=== PATIENT | male | born 1935 | race Caucasian/White ===

== ENCOUNTER → 2018-04-13 | Outpatient (CLI) | payer OTHER ==
--- NOTE | 2018-04-13 12:24 | EXE ---
[facility] [place] [address] STRESS ECHOCARDIOGRAM Name: LETTY IVEY JR Room #: REG [facility]#: [id number] Admission: 04/13/18 Attend Phys: Lemuel Perez Discharge: Date of : 35 Date of Service: 04/13/18 1223 Report #: [id number] THIS REPORT FOR: //name// APPROVED REPORT Study performed: 04/13/2018 10:08:00 Exam: Stress Echocardiogram Indication: CAD Patient Location: Out-Patient Stress Nurse: Yolanda Anaya RN Status: routine Ht: 5 ft 8 in HR: 48 bpm BP: 118/74 mmHg Rhythm: NSR Medical History Medications: Statin Allergies: No known drug allergies Cardiac Risk Factors: Hyperlipidemia Previous Cardiac Procedures: PCI Procedure The patient underwent an Exercise Stress Test using the Romie Protocol. Blood pressure, heart rate, and EKG were monitored. An Echocardiogram was performed by marine services technician in four stages in quad fashion. At peak stress, four selected images were obtained and placed side by side with resting images for comparison. Stress Test Details Stress Test: Exercise stress testing was performed using a Romie protocol. HR Resting HR: 48 bpm Max Heart Rate (APMHR): 138 bpm Max HR Achieved: 148 bpm Target HR (85% APMHR): 117 bpm % of APMHR: 107 Recovery HR: 81 bpm HR response to stress: Normal HR response to stress BP Resting BP: 118/74 mmHg Max BP: 182/60 mmHg Recovery BP: 160/60 mmHg BP response to stress: Normal blood pressure response to [facility] [address] [place] [address] STRESS ECHOCARDIOGRAM Name: LETTY IVEY JR Room #: REG [facility] [id number] Admission: 04/13/18 Attend Phys: Lemuel Perez Discharge: Date of : 35 Date of Service: 04/13/18 1223 Report #: [id number] stress. ECG Resting ECG: Sinus Rhythm Stress ECG: Sinus Tachycardia ST Change: Upsloping ST depression Recovery ECG: Sinus Bradycardia Recovery ST Change: Horizontal ST depression Recovery ST Deviation: 1 mm Clinical Reason for Termination: dry mouth, moderate dyspnea, fatigue, protocol complete Exercise duration: 7 min sec Highest Stage Achieved: Stage 3: 3.4 mph at 14% grade. Exercise capacity: 8.8 METs Stress ECG Conclusion 1. Subjectively negative for ischemia 2. Electrocardiographically J-point depression with upsloping ST segment during exercise with 1 mm horizontal depression in the inferior leads during recovery which did not fulfill criteria for ischemia. 3. Average functional capacity Pre-Stress Echo The resting Echocardiogram showed normal left ventricular contractility with an estimated Ejection Fraction of about 60-65%. Mild to moderate mitral regurgitation, sclerotic aortic valve with no stenosis, mild TR with a PAP of 25mmHg plus the RAP. Post-Stress Echo The stress Echocardiogram showed normal left ventricular contractility with an estimated Ejection Fraction of about >70%. Conclusion Clinical Response: Non-ischemic Exercise Capacity: Average Stress ECG Response: suggestive but not diagnostic Stress Echo Images: Non-ischemic 1. Low risk study Other Information Study Quality: Adequate/lots of lung artifact. [facility] [address] [place] [address] STRESS ECHOCARDIOGRAM Name: LETTY IVEY Room #: REG CL [facility]#: [id number] Admission: 04/13/18 Attend Phys: Lemuel Perez Discharge: Date of : 35 Date of Service: 04/13/183 Report #: [id number] <Conclusion> 1. Low risk study <ELECTRONICALLY SIGNED> By: Lemuel Garcia MD 04/13/183 22 22 Lemuel Garcia MD /INF
== END ==
LOC: CV 08:04
DX: I65.23 Occlusion and stenosis of bilateral carotid arteries (principal); I25.10 Atherosclerotic heart disease of native coronary artery without angina pectoris; R01.1 Cardiac murmur, unspecified; R09.89 Other specified symptoms and signs involving the circulatory and respiratory systems

== ENCOUNTER → 2018-09-26 | Outpatient (CLI) | payer OTHER ==
--- NOTE | 2018-09-27 07:49 | EKG ---
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 GOLDSMITH : 1935 Requested By: Lex Francis Order Number: [id number] MD: Erik Miguel Measurements Intervals [place] Rate: 56 P: 22 NC: 150 QRS: 2 QRSD: 87 T: 29 QT: 413 QTc: 399 Interpretive Statements Sinus bradycardia Otherwise normal tracing No previous ECG available for comparison Electronically Signed On 09-27-2018 7:48:51 CDT by Erik Miguel [email or web address] ��������������������������������������������� <ELECTRONICALLY SIGNED> ���������������������������������������� By: Erik Miguel MD, [facility] ��������������������������������������������� 09/27/18 0748 1736 1736 Erik Miguel MD, FACC /EPI
== END ==
LOC: CV 17:20
DX: R00.1 Bradycardia, unspecified (principal); R42 Dizziness and giddiness; W19.XXXA Unspecified fall, initial encounter

== ENCOUNTER → 2019-03-29 | Outpatient (CLI) | payer OTHER | LOC: SJCVC 10:00 | DX: R00.1 Bradycardia, unspecified (principal); I25.10 Atherosclerotic heart disease of native coronary artery without angina pectoris; E78.5 Hyperlipidemia, unspecified; K21.9 Gastro-esophageal reflux disease without esophagitis; Z79.82 Long term (current) use of aspirin; Z79.899 Other long term (current) drug therapy; Z87.891 Personal history of nicotine dependence ==

== ENCOUNTER → 2019-04-05 | Outpatient (CLI) | payer OTHER | LOC: SJCVCIMAG 07:28 | DX: I65.23 Occlusion and stenosis of bilateral carotid arteries (principal); R09.89 Other specified symptoms and signs involving the circulatory and respiratory systems; I70.8 Atherosclerosis of other arteries; Z87.891 Personal history of nicotine dependence ==

== ENCOUNTER → 2019-04-20 | Outpatient (CLI) | payer OTHER ==
[2019-04-20 09:44] LABS: CALCIUM 9.6 mg/dL (8.5-10.1); CREATININE 1.9 mg/dL (0.7-1.3); POTASSIUM 4.5 mmol/L (3.5-5.1)
== END ==
LOC: CAT 07:26
PROVIDERS: Nurse Practitioner
DX: N28.1 Cyst of kidney, acquired (principal); J98.4 Other disorders of lung; K76.89 Other specified diseases of liver; I25.10 Atherosclerotic heart disease of native coronary artery without angina pectoris; K56.41 Fecal impaction; N40.0 Benign prostatic hyperplasia without lower urinary tract symptoms; M25.78 Osteophyte, vertebrae; M48.061 Spinal stenosis, lumbar region without neurogenic claudication; M43.16 Spondylolisthesis, lumbar region; C61 Malignant neoplasm of prostate

== ENCOUNTER → 2020-12-11 | Emergency (ER) | payer OTHER ==
[~2020-12-11] VITALS: Ht 172.7 cm; Wt 78.0 kg
[~2020-12-11] MED LIST: ASA81BEC PO; D3-200050 MCG PO; MIDODRINE HCL2.5 M1 PO; NORCO5 PO; ROSUVASTATIN CAL5 MG PO; VITAMIN B12-FO1 EAC1 PO; VITAMIN C500 M1 PO
[2020-12-11 13:28] VITALS: BP 127/79
== END ==
LOC: ER 10:12
DX: M54.5 Low back pain (principal); Z79.899 Other long term (current) drug therapy